=== PATIENT | female | born 1945 | race Caucasian/White ===

== ENCOUNTER 2017-06-07 14:24 | Inpatient (IN) ==
--- NOTE | 2017-06-07 17:01 | Emergency Department Note ---
Disposition Clinical Impression: Pyelonephritis Disposition: Admitted As Inpatient Condition: Fair Abdominal Pain HPI - General Chief Complaint: ED Abdominal Pain Stated Complaint: R leg pain Time Seen by Provider: 06/07/17 15:32 Source: patient Mode of arrival: wheelchair Limitations: no limitations Nursing Notes Reviewed: Yes Vital Signs Reviewed: Yes - History of Present Illness HPI Narrative: 71-year-old female with a history of blood clots on Coumadin presents for evaluation of right flank pain and groin pain with radiation to the right knee. Patient states and tomatoes a couple weeks ago. Patient has pain worse when she stands up. Patient denies any dysuria or hematuria. Patient denies any nausea or vomiting. No abdominal pain. Patient denies any fevers. Patient denies any history of kidney stones. Patient denies any specific midline back tenderness. Did not take any pain medication prior to arrival. Patient's at bedside provided the history. Patient does state she was treated for cellulitis of lower extremities in the recent past and was on antibiotic and suffered diarrhea but denies any bowel or bladder issues currently. Pain Scale: 0 - Related Data Home Medications Medication Instructions Recorded Confirmed Carbidopa/Levodopa 25/100 [Sinemet 2 each PO TID 06/05/15 06/07/17 25/100] Insulin DETEMIR [Levemir Flextouch] 20 unit SQ HS 06/05/15 06/07/17 LORazepam [Ativan] 0.5 mg PO QPM 06/05/15 06/07/17 [place] Carbonate 150 mg PO BID 06/05/15 06/07/17 Losartan [Cozaar] 25 mg PO QAM 06/05/15 06/07/17 Metoprolol [Lopressor] 25 mg PO BID 06/05/15 06/07/17 Omeprazole [PriLOSEC] 40 mg PO QAM 06/05/15 06/07/17 methIMAzole [Tapazole] 5 mg PO QAM 06/05/15 06/07/17 Furosemide [Lasix] 40 mg PO QAM 06/07/17 06/07/17 Memantine HCl [Namenda Xr] 28 mg PO QAM 06/07/17 06/07/17 Pramipexole [Mirapex] 1 mg PO HS 06/07/17 06/07/17 Warfarin [Coumadin] 2 mg PO BEY 06/07/17 06/07/17 Warfarin [Coumadin] 3 mg PO MOTUWETHFRSA 06/07/17 06/07/17 Allergies Allergy/AdvReac Type Severity Reaction Status Date / Time adhesive tape Allergy Rash Verified 06/07/17 19:58 latex Allergy Rash Verified 06/05/15 14:27 All systems ED: reviewed and negative except as stated. 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: non-contributory Psychiatric history: Reports: other - Social History Smoking status: Never smoker Alcohol use: Reports: none Drug use: Reports: none Physical Exam - General Limitations: no limitations General appearance: alert, in no apparent distress - Head Head exam: atraumatic, normocephalic, normal inspection - Eye Eye exam: Present: normal appearance, PERRL, EOMI - ENT ENT exam: normal exam, normal oropharynx, mucous membranes moist - Neck Neck exam: Present: normal inspection, full ROM - Chest Chest inspection: Present: normal inspection, symmetric chest wall rise - Respiratory Respiratory exam: Present: normal lung sounds bilaterally. Absent: respiratory distress - Cardiovascular Cardiovascular exam: Present: regular rate, normal rhythm - Abdominal Exam Abdominal exam: Present: soft, Non-Tender - Extremities Exam Extremities exam: Present: normal inspection. Absent: pedal edema - Back Exam Back exam: Present: normal inspection. Absent: tenderness, CVA tenderness (R), CVA tenderness (L) - Neurological Exam Neurological exam: Present: alert, oriented X3 - Skin Skin exam: Present: warm, dry, intact, normal color Course Course Narrative: Patient denies any true pain medication. Patient will do basic lab CT abd/ pelvis urinalysis. Disposition pending. Vital Signs Temperature 97.9 F 06/07/17 14:45 Pulse Rate 65 06/07/17 14:45 Respiratory Rate 16 06/07/17 14:45 Blood Pressure 116/79 06/07/17 14:45 O2 Sat by Pulse Oximetry 99 03/05/18 14:45 Temperature 97.8 F 06/08/17 18:35 Pulse Rate 72 06/08/17 18:35 Respiratory Rate 16 06/08/17 18:35 Blood Pressure 143/75 06/08/17 18:35 O2 Sat by Pulse Oximetry 97 06/08/17 18:35 Oxygen Delivery Oxygen Delivery Room Air Abdominal Pain - Lab Data Lab results reviewed: Yes I reviewed the patient's lab results. Result diagrams: 06/08/17 04:07 06/08/17 04:07 Lab Results 06/07/17 06/07/17 06/07/17 Range/Units 18:02 18:02 18:28 WBC 11.2 H (4.3-11.1) K/mcL RBC 4.70 (3.82-4.97) M/mcL Hgb 13.1 (11.5-15.4) g/dL Hct 43.4 (35.3-44.9) % MCV 92.3 (83.0-100.0) fL MCH 27.9 L (28.0-33.3) pg MCHC 30.2 L (31.6-35.5) g/dL RDW 13.8 (11.5-14.5) % Plt Count 268 (140-400) K/mcL MPV 11.7 (9.4-12.4) fL Immature Gran % 0.4 (0-4) % Seg Neutrophils % 51.2 % Lymphocytes % 26.3 % Monocytes % 8.8 % Eosinophils % 12.5 % Basophils % 0.8 % Neutrophils # 5.7 (1.6-8.9) K/mcL Lymphocytes # 2.9 (0.6-4.6) K/mcL Monocytes # 1.0 (0.0-1.3) K/mcL Eosinophils # 1.4 H (0.0-0.6) K/mcL Basophils # 0.1 (0.0-0.2) K/mcL PT 25.6 H (9.4-12.1) Seconds INR 2.3 Sodium 135 L (136-145) mEq/L Potassium 4.8 (3.5-5.1) mEq/L Chloride 107 (98-107) mEq/L Carbon Dioxide 20 L (23-29) mEq/L BUN 22 (8-23) mg/dL Creatinine 1.00 (0.60-1.20) mg/dL Est GFR ( Amer) > 60 (> 60) Est GFR (Non-Af Amer) 54 L (> 60) BUN/Creatinine Ratio 22 (6-26) Glucose 118 H (70-105) mg/dL Calculated Osmolality 284 (280-300) Calcium 9.8 (8.6-10.3) mg/dL Total Bilirubin 0.4 (0.3-1.0) mg/dL Direct Bilirubin 0.0 (0.0-0.2) mg/dL Indirect Bilirubin 0.4 (0.0-1.2) mg/dL AST 18 (13-39) Units/L ALT 3 L (7-52) Units/L Alkaline Phosphatase 88 (34-104) Units/L Serum Total Protein 7.3 (6.4-8.9) g/dL Albumin 4.2 (3.5-5.7) g/dL Globulin 3.1 (2.4-3.5) g/dL Albumin/Globulin Ratio 1.4 (1.1-2.2) Lipase 22 (11-82) Units/L Urine Color (Yellow) Urine Clarity (Clear) Urine pH (5.0-8.0) pH Units Ur Specific [place] (1.010-1.025) Urine Protein (Neg-Trace) mg/dL Urine Glucose (UA) (Normal) mg/dL Urine Ketones (Negative) mg/dL Urine Blood (Negative) Urine Nitrite (Negative) Urine Bilirubin (Negative) Urine Urobilinogen (Normal) mg/dL Ur Leukocyte Esterase (Negative) Urine Microscopic RBC (0-3) per hpf Urine Microscopic WBC (0-3) per hpf Ur Squamous Epith Cells (None-Few) per lpf Urine Bacteria (None-Few) per hpf Hyaline Casts (None-Few) per lpf Ur Culture Indicated? (NO) 06/07/17 Range/Units 18:30 WBC (4.3-11.1) K/mcL RBC (3.82-4.97) M/mcL Hgb (11.5-15.4) g/dL Hct (35.3-44.9) % MCV (83.0-100.0) fL MCH (28.0-33.3) pg MCHC (31.6-35.5) g/dL RDW (11.5-14.5) % Plt Count (140-400) K/mcL MPV (9.4-12.4) fL Immature Gran % (0-4) % Seg Neutrophils % % Lymphocytes % % Monocytes % % Eosinophils % % Basophils % % Neutrophils # (1.6-8.9) K/mcL Lymphocytes # (0.6-4.6) K/mcL Monocytes # (0.0-1.3) K/mcL Eosinophils # (0.0-0.6) K/mcL Basophils # (0.0-0.2) K/mcL PT (9.4-12.1) Seconds INR Sodium (136-145) mEq/L Potassium (3.5-5.1) mEq/L Chloride (98-107) mEq/L Carbon Dioxide (23-29) mEq/L BUN (8-23) mg/dL Creatinine (0.60-1.20) mg/dL Est GFR ( Amer) (> 60) Est GFR (Non-Af Amer) (> 60) BUN/Creatinine Ratio (6-26) Glucose (70-105) mg/dL Calculated Osmolality (280-300) Calcium (8.6-10.3) mg/dL Total Bilirubin (0.3-1.0) mg/dL Direct Bilirubin (0.0-0.2) mg/dL Indirect Bilirubin (0.0-1.2) mg/dL AST (13-39) Units/L ALT (7-52) Units/L Alkaline Phosphatase (34-104) Units/L Serum Total Protein (6.4-8.9) g/dL Albumin (3.5-5.7) g/dL Globulin (2.4-3.5) g/dL Albumin/Globulin Ratio (1.1-2.2) Lipase (11-82) Units/L Urine Color Yellow (Yellow) Urine Clarity Cloudy A (Clear) Urine pH 6.5 (5.0-8.0) pH Units Ur Specific [place] 1.018 (1.010-1.025) Urine Protein Negative (Neg-Trace) mg/dL Urine Glucose (UA) Normal (Normal) mg/dL Urine Ketones Negative (Negative) mg/dL Urine Blood Negative (Negative) Urine Nitrite Positive A (Negative) Urine Bilirubin Negative (Negative) Urine Urobilinogen Normal (Normal) mg/dL Ur Leukocyte Esterase Large H (Negative) Urine Microscopic RBC 3-5 H (0-3) per hpf Urine Microscopic WBC TNTC H (0-3) per hpf Ur Squamous Epith Cells Many H (None-Few) per lpf Urine Bacteria Many H (None-Few) per hpf Hyaline Casts None Seen (None-Few) per lpf Ur Culture Indicated? NO. (NO) - Radiology Data Radiology results reviewed: Yes I reviewed the patient's radiology results. Abdomen/Pelvis CT 06/07/17 16:58 IMPRESSION: No convincing evidence of renal or ureteral calculus. No evidence of hydronephrosis. Colonic diverticulosis, without CT evidence of acute diverticulitis. Moderate to large hiatal hernia with nonspecific thickening of the herniated stomach has increased since 06/05/2015. D/ / 06/07/2017 17:42:42 Dameon Higginbotham MD / randee Interpreting Provider: Dameon Higginbotham MD Attestation Statement - Attestation Attestation: I examined this patient and my medical decision-making was reviewed with the Resident Physician, Dr. Patel. I agree with the documented findings, disposition and treatment plan as described except to the extent set forth below. Patient is a 71-year-old white female who presents the emergency department with complaints of right groin pain that she feels radiates to the right flank area as well as down the medial right thigh. Patient states the pain is sharp in character intermittent and has been getting worse over the past few days. Patient states she was treated for an outpatient urinary tract infection as well as a large nicci-cellulitis antibiotics. Patient denies any history of prior kidney stones. No fevers or chills, no nausea vomiting, no urinary symptoms. I agree with patient's physical exam findings as documented. Vital signs are stable and patient's in no acute distress. Lab evaluation and CT imaging of the abdomen and pelvis show findings consistent with infection in the urine with a mild elevation in white count and no evidence of stones or Paron. Patient's clinical symptoms concerning for acute pyelonephritis with failed outpatient therapy. Patient will be started on IV antibiotics in admitted for observation.
[2017-06-07 18:45] LABS: Basophils # 0.1 K/mcL (0.0-0.2); Basophils % 0.8 %; Eosinophils # 1.4 K/mcL (0.0-0.6); Eosinophils % 12.5 %; Hematocrit 43.4 % (35.3-44.9); Hemoglobin 13.1 g/dL (11.5-15.4); Immature Granulocytes % 0.4 % (0-4); Lymphocytes # 2.9 K/mcL (0.6-4.6); Lymphocytes % 26.3 %; Mean Corpuscular HGB Conc 30.2 g/dL (31.6-35.5); Mean Corpuscular Hemoglobin 27.9 pg (28.0-33.3); Mean Corpuscular Volume 92.3 fL (83.0-100.0); Mean Platelet Volume 11.7 fL (9.4-12.4); Monocytes % 8.8 %; Neutrophils # 5.7 K/mcL (1.6-8.9); Platelet Count 268 K/mcL (140-400); Red Cell Distribution Width 13.8 % (11.5-14.5); Segmented Neutrophils % 51.2 %
[2017-06-07 18:51] LABS: INR 2.3; Prothrombin Time 25.6 Seconds (9.4-12.1)
[2017-06-07 18:51] LABS: Bilirubin,Urine Negative (Negative); Blood,Urine Negative (Negative); Clarity,Urine Cloudy (Clear); Color,Urine Yellow (Yellow); Glucose,Urine (UA) Normal (Normal); Ketones,Urine Negative (Negative); Leukocyte Esterase,Urine Large (Negative); Nitrite,Urine Positive (Negative); PH,Urine 6.5 pH Units (5.0-8.0); Protein,Urine Negative (Neg-Trace); Specific Gravity,Urine 1.018 (1.010-1.025); Urobilinogen,Urine Normal (Normal)
[2017-06-07 18:53] LABS: Bacteria,Urine Many per hpf (None-Few); Hyaline Casts,Urine None Seen per lpf (None-Few); Squamous Epithelial Cell,Urine Many per lpf (None-Few); WBC,Urine TNTC per hpf (0-3)
[2017-06-07 19:10] LABS: Alanine Aminotransferase 3 Units/L (7-52); Albumin 4.2 g/dL (3.5-5.7); Albumin/Globulin Ratio 1.4 (1.1-2.2); Alkaline Phosphatase 88 Units/L (34-104); Aspartate Amino Transferase 18 Units/L (13-39); BUN/Creatinine Ratio 22 (6-26); Bilirubin,Indirect 0.4 mg/dL (0.0-1.2); Bilirubin,Total 0.4 mg/dL (0.3-1.0); Blood Urea Nitrogen 22 mg/dL (8-23); Calcium 9.8 mg/dL (8.6-10.3); Carbon Dioxide 20 mEq/L (23-29); Chloride 107 mEq/L (98-107); Globulin 3.1 g/dL (2.4-3.5); Glucose 118 mg/dL (70-105); Lipase 22 Units/L (11-82); Osmolality,Calculated 284 (280-300); Potassium 4.8 mEq/L (3.5-5.1); Sodium 135 mEq/L (136-145); Total Protein 7.3 g/dL (6.4-8.9); eGFR For African Americans > 60 (> 60); eGFR For Non-African Americans 54 (> 60)
[2017-06-07] MEDS ORDERED: cefTRIAXone 1,000 MG in Water for inj. (sterile) 20 ML 10 ML IVP ONE (19:29)
[2017-06-07] MEDS ORDERED: *HR* LORazepam 2 MG/ML VIAL IVP ONE (19:54)
[2017-06-07] MEDS: 0.9 % Sodium Chloride 1,000 ML IVC SCH (20:35)
[2017-06-07] MEDS ORDERED: Naloxone 0.4 MG/ML INJ IVP PRN (22:46)
[2017-06-07] MEDS ORDERED: *HR* OxyCODONE Immed Rel 5 MG TABLET PO PRN (22:46)
[2017-06-07] MEDS ORDERED: *HR* HYDROcodone/Acet 5/325 mg TABLET PO PRN (22:46)
[2017-06-07] MEDS ORDERED: Acetaminophen 325 MG TABLET PO PRN (22:46)
[2017-06-07] MEDS ORDERED: D5% in Water 1,000 ML IVC PRN (22:50)
[2017-06-07] MEDS ORDERED: *HR* Dextrose 50 % in Water (Syg) 50 ML SYRINGE IVP PRN (22:50)
[2017-06-07] MEDS ORDERED: Dextrose Gel 15 GM/37.5 ML TUBE PO PRN ×2 (22:50)
[2017-06-07] MEDS ORDERED: 0.9 % Sodium Chloride 1,000 ML IVC SCH (23:00)
--- NOTE | 2017-06-07 23:01 | Internal Med History&Physical ---
Date of Encounter: 06/08/17 Time of Encounter: 22:57 Assessment and Plan (1) Pyelonephritis Current visit: Yes Status: Acute 71/female admitted with flank pain and radiation to groin. Renal punch positive. White blood cell: Minimally elevated. UA: Nitrite positive/leukocyte esterase large CT abdomen: No evidence of pyelonephritis. Assessment: Clinical pyelonephritis. Other differential will be chronic back pain secondary to degenerative disease. Plan: Admit as inpatient. Intravenous ceftriaxone. Follow cultures. Resume home medication. Close monitoring of the neurological status. I examined this patient in the emergency department room #24. Patient's family member including her and daughter at bedside. I explained him at length plan of care and progress. (2) DVT (deep venous thrombosis) Current visit: No Status: Acute Previous DVT. Patient has IVC filter. Patient has a presently taking Coumadin and INR is therapeutic. Qualifiers: DVT location: lower extremity Affected thrombotic vein of extremity: unspecified vein of extremity Chronicity: acute Laterality: right Qualified Code(s): I82.401 - Acute embolism and thrombosis of unspecified deep veins of right lower extremity (3) Diabetes Current visit: No Status: Acute Qualifiers: Diabetes mellitus type: type 2 Diabetes mellitus complication status: with unspecified complications Diabetes mellitus half-way insulin use: unspecified intermediate project manager insulin use status Qualified Code(s): E11.8 - Type 2 diabetes mellitus with unspecified complications Internal Medicine - H&P: HPI Chief complaint: right flank pain Admitted From: Emergency Dept Plans for Post Hospital Care: Home History of present illness: 71/F PCP: Patsy Figueroa. Brief PMH:DM, HTN, Dyslipidemia, CAD, CKDIII, GERD, Dementia, Previous CABG, Seizures, has pacemaker/AICD, History of DVT and for which she has filter placed and takes coumadin. HPI: Patient is complaining of for right-sided flank pain which is starts from her flank and was all the way to the groin and up to the knee. Patient claims that the pain is progressively getting worse and to the extent that she has difficulty in walking. Patient claims that she has occasional difficulty in micturition. But she denies frequency/urgency or hesitancy. Patient denies any fever, nausea, vomiting, abdominal pain, dizziness and diarrhea. Patient was evaluated in the emergency room. CT scan of the abdomen did not show any abnormality. Her white count is minimally raised and her INR is within therapeutic range. Reason for admission: Possible pyelonephritis the clinical suspicion. I feel patient has a more of her lumbar spine issue. Past Med Surg Social Fam HX - Past Medical History Medical history: arthritis, dementia, diabetes, GERD, hyperlipidemia, hypertension, myocardial infarction, osteoporosis, thyroid disease, other Psychiatric history: anxiety, depression, other - Past Surgical History Surgical History: hysterectomy, orthopedic, other, pacemaker/AICD, AYESHA/BSO, other - Social History Smoking Status: Never smoker Smokeless Tobacco Status: No Alcohol use: none Drug use: none Internal Medicine - H&P: Meds Carbidopa/Levodopa 25/100 [Sinemet 25/100] 2 each PO TID 06/05/15 [History] Insulin DETEMIR [Levemir Flextouch] 20 unit SQ HS 06/05/15 [History] LORazepam [Ativan] 0.5 mg PO QPM 06/05/15 [History] [place] Carbonate 150 mg PO BID 06/05/15 [History] Losartan [Cozaar] 25 mg PO QAM 06/05/15 [History] Metoprolol [Lopressor] 25 mg PO BID 06/05/15 [History] Omeprazole [PriLOSEC] 40 mg PO QAM 06/05/15 [History] methIMAzole [Tapazole] 5 mg PO QAM 06/05/15 [History] Furosemide [Lasix] 40 mg PO QAM 06/07/17 [History] Memantine HCl [Namenda Xr] 28 mg PO QAM 06/07/17 [History] Pramipexole [Mirapex] 1 mg PO HS 06/07/17 [History] Warfarin [Coumadin] 2 mg PO BEY 06/07/17 [History] Warfarin [Coumadin] 3 mg PO MOTUWETHFRSA 06/07/17 [History] 3 Allergy/AdvReac Type Severity Reaction Status Date / Time adhesive tape Allergy Rash Verified 06/07/17 19:58 latex Allergy Rash Verified 06/05/15 14:27 All Systems PM: A 10-system review of systems was performed and is negative for pertinent findings except as documented above in the HPI. - Constitutional Constitutional: night sweats, no chills - EENT Eyes: no change in vision, no discharge, no pain, no photophobia Ears: no ear discharge, no ear pain, no tinnitus Nose, mouth and throat: no dysphagia, no nasal discharge, no neck pain, no sore throat - Cardiovascular Cardiovascular ROS IM: no chest pain, no diaphoresis, no dyspnea, no lightheadedness, no palpitations, no syncope - Respiratory Respiratory: no cough, no dyspnea, no wheezing, no excessive phlegm production - Gastrointestinal Gastrointestinal: abdominal pain, no diarrhea, no hematemesis, no hematochezia, no melena, no nausea, no vomiting Additional comments: Right-sided flank pain. - Genitourinary Genitourinary: no change in urinary stream, no dysuria, no flank pain, no hematuria - Musculoskeletal Musculoskeletal ROS IM: no numbness, no tingling - Integumentary Integumentary IM: no rash, no unusual bruising - Neurological Neurological ROS: no confusion, no convulsions, no focal weakness, no numbness, no tingling, no tremor(s) - Hematologic/Lymphatic Hematologic/Lymphatic: no easy bruising - Constitutional Vitals: Temp Pulse Resp BP Pulse Ox 98.0 F 86 15 171/78 95 06/07/17 21:33 06/07/17 21:33 06/07/17 21:33 06/07/17 21:33 06/07/17 21:33 General appearance: Present: A&O X 3, pleasant, no acute distress, answers questions appropriately - Head Head exam: Present: atraumatic, normocephalic - Eye Eye exam: Present: PERRL, conjuntiva pink, sclera anicteric Pupils: Present: PERRL - Neck Neck exam general surgery: Present: supple, trachea midline. Absent: lymphadenopathy - Respiratory Respiratory exam: Present: CTAB. Absent: accessory muscle use, rales, rhonchi, wheezes - Cardiovascular Cardiovascular exam: Present: RRR, +S1, +S2. Absent: diastolic murmur, gallop, rubs, systolic murmur - GI/Abdominal GI/Abdominal exam: Present: normal bowel sounds, soft, no peritoneal signs. Absent: distended, tenderness Additional comments: She definitely has a renal punch positive. She definitely has a costovertebral angle tenderness. - Extremities Exam Extremities exam: Present: warm, radial pulses palpable and symmetrical. Absent : calf tenderness, cyanotic, pedal edema - Neurological Exam Neurological exam: Present: CN II-XII intact, oriented X3, no focal deficits. Absent: pronater drift, facial droop, speech deficit - Skin Skin exam: Present: dry, intact Internal Med - H&P Results - Labs CBC & Chem 7: 06/08/17 04:07 03 18:02
[2017-06-08 04:53] LABS: Basophils # 0.1 K/mcL (0.0-0.2); Basophils % 0.7 %; Eosinophils # 1.1 K/mcL (0.0-0.6); Eosinophils % 11.9 %; Hematocrit 36.5 % (35.3-44.9); Immature Granulocytes % 0.2 % (0-4); Lymphocytes # 2.3 K/mcL (0.6-4.6); Mean Corpuscular HGB Conc 31.5 g/dL (31.6-35.5); Mean Corpuscular Hemoglobin 28.1 pg (28.0-33.3); Mean Corpuscular Volume 89.2 fL (83.0-100.0); Mean Platelet Volume 10.6 fL (9.4-12.4); Monocytes # 0.8 K/mcL (0.0-1.3); Monocytes % 8.3 %; Neutrophils # 5.2 K/mcL (1.6-8.9); Platelet Count 272 K/mcL (140-400); Red Blood Count 4.09 M/mcL (3.82-4.97); Red Cell Distribution Width 13.9 % (11.5-14.5); Segmented Neutrophils % 54.9 %
[2017-06-08 04:56] LABS: Hemoglobin 11.5 g/dL (11.5-15.4)
[2017-06-08 04:58] LABS: INR 2.3; Prothrombin Time 24.7 Seconds (9.4-12.1)
[2017-06-08 05:00] LABS: Activated Partial Thrombo Time 39.4 Seconds (26.0-36.0)
[2017-06-08 05:11] LABS: Troponin I < 0.03 ng/mL (< 0.04)
[2017-06-08 05:12] LABS: Alanine Aminotransferase 9 Units/L (7-52); Albumin 3.9 g/dL (3.5-5.7); Albumin/Globulin Ratio 1.6 (1.1-2.2); Alkaline Phosphatase 80 Units/L (34-104); Aspartate Amino Transferase 11 Units/L (13-39); BUN/Creatinine Ratio 22 (6-26); Bilirubin,Total 0.4 mg/dL (0.3-1.0); Blood Urea Nitrogen 21 mg/dL (8-23); Calcium 9.2 mg/dL (8.6-10.3); Carbon Dioxide 21 mEq/L (23-29); Chloride 108 mEq/L (98-107); Chol/HDL Ratio 4.3 (0-4.9); Cholesterol 217 mg/dL (< 200); Globulin 2.4 g/dL (2.4-3.5); Glucose 171 mg/dL (70-105); HDL Cholesterol 51 mg/dL (40-59); LDL Cholesterol,Calculated 120 mg/dL (0-99); Osmolality,Calculated 291 (280-300); Phosphorous 3.1 mg/dL (2.7-4.5); Sodium 137 mEq/L (136-145); Total Protein 6.3 g/dL (6.4-8.9); Triglycerides 232 mg/dL (< 150); eGFR For African Americans > 60 (> 60); eGFR For Non-African Americans 58 (> 60)
[2017-06-08] MEDS: Carbidopa/Levodopa 25/100 TABLET PO SCH ×3 (09:27→21:03)
[2017-06-08] MEDS: Lithium Oral Soln 300 MG/5 ML UDC PO SCH ×2 (09:28→21:02)
[2017-06-08] MEDS: *HR* LORazepam 0.5 MG TABLET PO SCH ×2 (09:28→21:03)
[2017-06-08] MEDS: methIMAzole 5 MG TABLET PO SCH (09:28)
[2017-06-08] MEDS: *HR* Warfarin 3 MG TABLET PO SCH ×2 (09:45→18:20)
[2017-06-08] MEDS: Insulin LISPRO 300 UNITS/3 ML VIAL SQ SCH ×3 (09:45→17:43)
--- NOTE | 2017-06-08 13:06 | Internal Med Progress Note ---
Date of Encounter: 06/08/17 Time of Encounter: 13:05 - Assessment and plan (1) Dementia arising in the senium and presenium Current Visit: Yes Status: Acute Assessment and plan: continue home meds (2) Diabetes Current Visit: Yes Status: Chronic Assessment and plan: continue sliding scale and levemir, monitor FS ACHS Qualifiers: Diabetes mellitus type: type 2 Diabetes mellitus complication status: with unspecified complications Diabetes mellitus termite treater helper insulin use: unspecified assisted insulin use status Qualified Code(s): E11.8 - Type 2 diabetes mellitus with unspecified complications (3) DVT (deep venous thrombosis) Current Visit: Yes Status: Chronic Assessment and plan: continue coumadin, INR is therapeutic Qualifiers: DVT location: lower extremity Affected thrombotic vein of extremity: unspecified vein of extremity Chronicity: acute Laterality: right Qualified Code(s): I82.401 - Acute embolism and thrombosis of unspecified deep veins of right lower extremity (4) Pyelonephritis Current Visit: Yes Status: Suspected Assessment and plan: suspected, continue antibiotics, de-escalate with culture reports CT scan does not show pyelonephritis Obtain renal USS (5) Renal colic Current Visit: Yes Status: Suspected Assessment and plan: Suspected Patient's loin complain is R sided, however Abd CT shows Left nephrolithiasis, patient may have passed stone already Continue to monitor - Subjective Interval history: 71F seen and evaluated at bedside with spouse Asking to be discharged home, still complaining f R knee pain-chronic Seems patient is admitted for flank pain, suspect renal colic, CT scan does not show pyelonphritis - Constitutional Vitals: Temp Pulse Resp BP Pulse Ox 97.8 F 87 18 118/71 92 06/08/17 10:42 06/08/17 10:42 06/08/17 10:42 06/08/17 10:42 06/08/17 10:42 General appearance: Present: A&O X 3, pleasant, no acute distress, answers questions appropriately - Head Head exam: Present: atraumatic, normocephalic - Eye Eye exam: Present: PERRL, conjuntiva pink, sclera anicteric Pupils: Present: PERRL - Neck Neck exam general surgery: Present: supple, trachea midline. Absent: lymphadenopathy - Respiratory Respiratory exam: Present: CTAB. Absent: accessory muscle use, rales, rhonchi, wheezes - Cardiovascular Cardiovascular exam: Present: RRR, +S1, +S2. Absent: diastolic murmur, gallop, rubs, systolic murmur - GI/Abdominal GI/Abdominal exam: Present: normal bowel sounds, soft, no peritoneal signs. Absent: distended, tenderness - Extremities Exam Additional comments: chronic venous stasis changes L>R, due to venous insufficiency-chronic, per at the bedside - Neurological Exam Neurological exam: Present: alert, CN II-XII intact, oriented X3, no focal deficits. Absent: pronater drift, facial droop, speech deficit - Skin Skin exam: Present: dry, intact Internal Medicine: Result - Labs CBC & Chem 7: 06/08/17 04:07 06/08/17 04:07 Labs: Short CBC 06/08/17 Range/Units 04:07 WBC 9.5 (4.3-11.1) K/mcL Hgb 11.5 D (11.5-15.4) g/dL Hct 36.5 (35.3-44.9) % Plt Count 272 (140-400) K/mcL Neutrophils # 5.2 (1.6-8.9) K/mcL BMP 06/08/17 04:07 Sodium 137 Potassium 4.0 Chloride 108 H Carbon Dioxide 21 L BUN 21 Creatinine 0.95 Glucose 171 H Calcium 9.2 Cardiac Enzymes 06/08/17 Range/Units 04:07 Troponin I < 0.03 (< 0.04) ng/mL Liver Function 06/08/17 Range/Units 04:07 Total Bilirubin 0.4 (0.3-1.0) mg/dL AST 11 L (13-39) Units/L ALT 9 (7-52) Units/L Alkaline Phosphatase 80 (34-104) Units/L Albumin 3.9 (3.5-5.7) g/dL - ABG Interpretation ABG results: PT/INR, D-dimer PT 24.7 Seconds (9.4-12.1) H 06/08/17 04:07 Consult Discharge Plan - Plan Referrals: yMrtle Figueroa [Primary Care Provider] -
[2017-06-08] MEDS ORDERED: Lidocaine 4% CREAM (LMX) 5 GM TP PRN (14:13)
[2017-06-08] MEDS ORDERED: Warfarin perPT PO PRN (18:00)
[2017-06-08] MEDS ORDERED: cefTRIAXone 1,000 MG in Water for inj. (sterile) 20 ML 10 ML IVP SCH (18:30)
[2017-06-08] MEDS: 0.9 % Sodium Chloride 1,000 ML IVC SCH (19:26)
[2017-06-08] MEDS ORDERED: Melatonin 3 MG TABLET PO PRN (20:05)
[2017-06-08] MEDS ORDERED: INSULIN DETEMIR 12 UNIT SQ SCH (21:00)
[2017-06-08] MEDS ORDERED: Insulin DETEMIR 100 UNIT/ML X5UNITS SQ SCH (21:00)
[2017-06-09] MEDS: Insulin LISPRO 300 UNITS/3 ML VIAL SQ SCH ×2 (07:28→11:32)
[2017-06-09] MEDS: *HR* LORazepam 0.5 MG TABLET PO SCH (07:34)
[2017-06-09] MEDS: Carbidopa/Levodopa 25/100 TABLET PO SCH (07:34)
[2017-06-09] MEDS: Lithium Oral Soln 300 MG/5 ML UDC PO SCH (07:36)
[2017-06-09] MEDS: methIMAzole 5 MG TABLET PO SCH (07:36)
[2017-06-09 08:32] LABS: Basophils # 0.1 K/mcL (0.0-0.2); Basophils % 0.5 %; Eosinophils # 1.2 K/mcL (0.0-0.6); Eosinophils % 13.2 %; Hemoglobin 12.9 g/dL (11.5-15.4); Immature Granulocytes % 0.2 % (0-4); Lymphocytes # 1.7 K/mcL (0.6-4.6); Mean Corpuscular HGB Conc 30.7 g/dL (31.6-35.5); Mean Corpuscular Hemoglobin 27.9 pg (28.0-33.3); Mean Corpuscular Volume 90.9 fL (83.0-100.0); Mean Platelet Volume 10.8 fL (9.4-12.4); Monocytes # 0.5 K/mcL (0.0-1.3); Monocytes % 5.7 %; Neutrophils # 5.6 K/mcL (1.6-8.9); Platelet Count 256 K/mcL (140-400); Red Blood Count 4.62 M/mcL (3.82-4.97); Red Cell Distribution Width 13.9 % (11.5-14.5); Segmented Neutrophils % 61.4 %
[2017-06-09 08:36] LABS: INR 1.9; Prothrombin Time 20.9 Seconds (9.4-12.1)
[2017-06-09 08:40] LABS: BUN/Creatinine Ratio 17 (6-26); Blood Urea Nitrogen 16 mg/dL (8-23); Calcium 9.7 mg/dL (8.6-10.3); Carbon Dioxide 19 mEq/L (23-29); Chloride 108 mEq/L (98-107); Glucose 131 mg/dL (70-105); Osmolality,Calculated 287 (280-300); Potassium 4.2 mEq/L (3.5-5.1); Sodium 137 mEq/L (136-145); eGFR For African Americans > 60 (> 60); eGFR For Non-African Americans 57 (> 60)
[2017-06-09 10:29] VITALS: BP 166/99
--- NOTE | 2017-06-09 11:06 | Internal Med Progress Note ---
Date of Encounter: 06/09/17 Time of Encounter: 11:05 - Assessment and plan (1) Dementia arising in the senium and presenium Current Visit: Yes Status: Acute (2) Diabetes Current Visit: Yes Status: Chronic Qualifiers: Diabetes mellitus type: type 2 Diabetes mellitus complication status: with unspecified complications Diabetes mellitus senior chemical engineer insulin use: unspecified nursing home insulin use status Qualified Code(s): E11.8 - Type 2 diabetes mellitus with unspecified complications (3) DVT (deep venous thrombosis) Current Visit: Yes Status: Chronic Qualifiers: DVT location: lower extremity Affected thrombotic vein of extremity: unspecified vein of extremity Chronicity: acute Laterality: right Qualified Code(s): I82.401 - Acute embolism and thrombosis of unspecified deep veins of right lower extremity (4) Pyelonephritis Current Visit: Yes Status: Suspected (5) Renal colic Current Visit: Yes Status: Suspected - Subjective Interval history: 71F seen and evaluated at bedside States abdominal pain is improved No new complains Urine culture is pending - Constitutional Vitals: Temp Pulse Resp BP Pulse Ox 98.1 F 70 15 166/99 97 06/09/17 10:28 06/09/17 10:28 06/09/17 10:28 06/09/17 10:28 06/09/17 10:28 General appearance: Present: A&O X 3, pleasant, no acute distress, answers questions appropriately - Head Head exam: Present: atraumatic, normocephalic - Eye Eye exam: Present: PERRL, conjuntiva pink, sclera anicteric Pupils: Present: PERRL - Neck Neck exam general surgery: Present: supple, trachea midline. Absent: lymphadenopathy - Respiratory Respiratory exam: Present: CTAB. Absent: accessory muscle use, rales, rhonchi, wheezes - Cardiovascular Cardiovascular exam: Present: RRR, +S1, +S2. Absent: diastolic murmur, gallop, rubs, systolic murmur - GI/Abdominal GI/Abdominal exam: Present: normal bowel sounds, soft, no peritoneal signs. Absent: distended, tenderness - Extremities Exam Additional comments: chronic venous stasis changes - Neurological Exam Neurological exam: Present: alert, CN II-XII intact, oriented X3, no focal deficits. Absent: pronater drift, facial droop, speech deficit - Skin Skin exam: Present: dry, intact Internal Medicine: Result - Labs CBC & Chem 7: 06/09/17 08:11 06/09/17 08:11 Labs: Short CBC 06/09/17 Range/Units 08:11 WBC 9.1 (4.3-11.1) K/mcL Hgb 12.9 (11.5-15.4) g/dL Hct 42.0 (35.3-44.9) % Plt Count 256 (140-400) K/mcL Neutrophils # 5.6 (1.6-8.9) K/mcL BMP 06/09/17 08:11 Sodium 137 Potassium 4.2 Chloride 108 H Carbon Dioxide 19 L BUN 16 Creatinine 0.96 Glucose 131 H Calcium 9.7 - ABG Interpretation ABG results: PT/INR, D-dimer PT 20.9 Seconds (9.4-12.1) H 06/09/17 08:11 - Impressions Impressions Retroperitoneum Ultrasound 06/08/17 15:00 IMPRESSION: Postvoid residual volume of 338 mL. Kidneys otherwise are unremarkable. D/ / Madiha Herrera MD / Madiha Herrera MD Interpreting Provider: Madiha Herrera MD Consult Discharge Plan - Plan Referrals: Myrtle Figueroa [Primary Care Provider] -
--- NOTE | 2017-06-09 13:18 | Discharge Summary ---
- NOTES TO OUTPATIENT PROVIDER Notes to Outpatient Provider: Eugenia's urine culture is pending. 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: Secondary Status: Chronic (2) Diabetes Priority: Secondary Status: Chronic Qualifiers: Diabetes mellitus type: type 2 Diabetes mellitus complication status: with unspecified complications Diabetes mellitus prison insulin use: unspecified prison insulin use status Qualified Code(s): E11.8 - Type 2 diabetes mellitus with unspecified complications (3) DVT (deep venous thrombosis) Priority: Secondary Status: Chronic Qualifiers: DVT location: lower extremity Affected thrombotic vein of extremity: unspecified vein of extremity Chronicity: acute Laterality: right Qualified Code(s): I82.401 - Acute embolism and thrombosis of unspecified deep veins of right lower extremity (4) Pyelonephritis Priority: Primary Status: Suspected (5) Renal colic Priority: Primary Status: Resolved Hospital course: Ms. Ho is a 71 year old female with medical history of diabetes mellitus, and DVT on Coumadin. She presented with right flank pain which radiated to her right thigh. She denied fever or chills she did not have dysuria , hematuria. The patient did not have any nausea or vomiting. No abdominal pain. She was not known to have any history of nephrolithiasis. No change in her bowel habits. The patient's workup in the ER included an abdominal CAT scan which ruled out a pyelonephritis, but shows nephrolithiasis of the left kidney. The patient is urine analysis was abnormal and suspicious for urinary tract infection. The patient's pain had resolved prior to my evaluation. The patient was started on ceftriaxone empirically for management of urinary tract infection. Suspect that the patient may have hepatorenal "economy have passed a stone. The patient was seen and evaluated at the bedside this morning, along with her partner, and was requesting to be discharged home. They do not wish to wait for the urine culture reports. The patient has no new symptoms. And hypoxia resolved without any specific therapy. We will discharge the patient home on Omnicef daily, and he had provided phone nukbers should the dose or name of antibiotic change. The patient is clinically stable and ambulatory. Follow-up with primary care physician. Bill - [phone] (Home phone), [phone](mobile) Discharge discussed with: patient, family, nurse, social work, case management - Time Spent with Patient Total time spent providing and/or coordinating discharge services: Less than 30 minutes - Discharge Medications Prescriptions: Cefdinir [Omnicef] 300 mg PO DAILY #5 capsule Home Medications: Carbidopa/Levodopa 25/100 [Sinemet 25/100] 2 each PO TID 06/05/15 [History] Insulin DETEMIR [Levemir Flextouch] 20 unit SQ HS 06/05/15 [History] LORazepam [Ativan] 0.5 mg PO QPM 06/05/15 [History] [place] Carbonate 150 mg PO BID 06/05/15 [History] Losartan [Cozaar] 25 mg PO QAM 06/05/15 [History] Metoprolol [Lopressor] 25 mg PO BID 06/05/15 [History] Omeprazole [PriLOSEC] 40 mg PO QAM 06/05/15 [History] methIMAzole [Tapazole] 5 mg PO QAM 06/05/15 [History] Furosemide [Lasix] 40 mg PO QAM 06/07/17 [History] Memantine HCl [Namenda Xr] 28 mg PO QAM 06/07/17 [History] Pramipexole [Mirapex] 1 mg PO HS 06/07/17 [History] Warfarin [Coumadin] 2 mg PO BEY 06/07/17 [History] Warfarin [Coumadin] 3 mg PO MOTUWETHFRSA 06/07/17 [History] Cefdinir [Omnicef] 300 mg PO DAILY #5 capsule 06/09/17 [Rx] Allergies/Adverse Reactions: 3 Allergy/AdvReac Type Severity Reaction Status Date / Time adhesive tape Allergy Rash Verified 06/07/17 19:58 latex Allergy Rash Verified 06/05/15 14:27 Date of admission: 06/08/17 03:53 Primary care physician: Myrtle Figueroa Discharging clinician: Santiago Grant Anticipated date of discharge: 06/09/17 - Constitutional Vitals: Temp Pulse Resp BP Pulse Ox 98.1 F 70 15 166/99 97 06/09/17 10:28 06/09/17 10:28 06/09/17 10:28 06/09/17 10:28 06/09/17 10:28 General appearance: Present: A&O X 3, pleasant, no acute distress, answers questions appropriately - Head Head exam: Present: atraumatic, normocephalic - Eye Eye exam: Present: PERRL, conjuntiva pink, sclera anicteric Pupils: Present: PERRL - Neck Neck exam general surgery: Present: supple, trachea midline. Absent: lymphadenopathy - Back Exam Back exam: Absent: CVA tenderness (L), CVA tenderness (R) - Patient Status Disposition: Home Health Service Condition: Good Functional capacity at discharge: independent ambulation Overall status at discharge: patient is back to baseline - Discharge Instructions Follow Up With: Myrtle Figueroa [Primary Care Provider] - 06/16/17 3:30 pm - Diet and Activity Activity: resume usual activities as tolerated Diet: advance to your usual diet
--- NOTE | 2017-06-09 13:36 | Physician Discharge Referral ---
Home Health/Hosp Referral Info Transfer to: Home Health Attending Provider: Rudy Henderson Provider in Charge Post Discharge: PCP - Diagnosis (1) Dementia arising in the senium and presenium Priority: Primary Status: Acute (2) Diabetes Priority: Secondary Status: Chronic (3) DVT (deep venous thrombosis) Priority: Secondary Status: Chronic (4) Pyelonephritis Priority: Primary Status: Suspected (5) Renal colic Priority: Primary Status: Resolved - Respiratory Orders Smoking Cessation: Smoking cessation has been advised. For more information, call the [place] Tobacco Quit Line at 1-903-UDQM-NOW. - Diet/Nutrition Diet/Nutrition Orders: Cardiac - Activity Activity Orders: Up ad rosa - Services Needed Following services are medically necessary services: Nursing, Home Health Aide, Physical Therapy, Occupational Therapy - Transfer Medications Prescriptions: Cefdinir [Omnicef] 300 mg PO DAILY #5 capsule Home Medications: Carbidopa/Levodopa 25/100 [Sinemet 25/100] 2 each PO TID 06/05/15 [History] Insulin DETEMIR [Levemir Flextouch] 20 unit SQ HS 06/05/15 [History] LORazepam [Ativan] 0.5 mg PO QPM 06/05/15 [History] [place] Carbonate 150 mg PO BID 06/05/15 [History] Losartan [Cozaar] 25 mg PO QAM 06/05/15 [History] Metoprolol [Lopressor] 25 mg PO BID 06/05/15 [History] Omeprazole [PriLOSEC] 40 mg PO QAM 06/05/15 [History] methIMAzole [Tapazole] 5 mg PO QAM 06/05/15 [History] Furosemide [Lasix] 40 mg PO QAM 06/07/17 [History] Memantine HCl [Namenda Xr] 28 mg PO QAM 06/07/17 [History] Pramipexole [Mirapex] 1 mg PO HS 06/07/17 [History] Warfarin [Coumadin] 2 mg PO BEY 06/07/17 [History] Warfarin [Coumadin] 3 mg PO MOTUWETHFRSA 06/07/17 [History] Cefdinir [Omnicef] 300 mg PO DAILY #5 capsule 06/09/17 [Rx] Allergies/Adverse Reactions: 3 Allergy/AdvReac Type Severity Reaction Status Date / Time adhesive tape Allergy Rash Verified 06/07/17 19:58 latex Allergy Rash Verified 06/05/15 14:27 Certification: Further, I certify that my clinical findings support that this patient is homebound (i.e. absences from home require considerable and taxing effort and are for medical reasons or scientology services or infrequently or short duration when for other reasons) because: Homebound Reason: Patient requires assistance of a person or device to safely leave home Attestation: My signature below is to certify that this patient is under my care and that I, or nurse practitioner, or a physician's assistant store manager operations working with me, has a face-to -face encounter with this patient.
[2017-06-13] MEDS ORDERED: *HR* Warfarin 2 MG TABLET PO SCH (18:00)
== END 2017-06-09 15:01 | disposition home health service (06) | DRG 690 ==
LOC: 3ANU 14:24 → EMEROO 14:24 → 3ANU 21:16 → SUATTDRO 06-08 03:53
PROVIDERS: ADMIT Family Medicine; ATTEND Internal Medicine